=== PATIENT | male | born 1970 | race Caucasian/White ===

== ENCOUNTER 2017-05-09 12:35 | Emergency (ER) | payer MEDICAID ==
[~2017-05-09] VITALS: Ht 175.3 cm; Wt 92.0 kg
[2017-05-09 12:47] VITALS: Ht 175.3 cm; Wt 92.0 kg
[2017-05-09 14:13] VITALS: BP 167/103; PULSE 71; RESP 18
[2017-05-09] MEDS ORDERED: IBUP-1542 PO (14:13)
--- NOTE | 2017-05-09 17:32 | ERD ---
ER Documentation Chief Complaint Date/Time DATE: 05/09/17 TIME: 17:31 Chief Complaint BULGE IN LEFT GROIN AREA X 1 WEEK HPI Patient is a 46-year-old male with no medical problems who presents with a bulge in his left groin. This started 1 week ago. 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 He has been having normal bowel movements. He denies vomiting. He has had no treatment as of yet. He does not currently have a primary doctor. Upon review of old medical records this is the patient' s second visit to the emergency department for an unrelated reason. ROS All systems reviewed and are negative except as per history of present illness. Medications Home Meds Active Scripts Ibuprofen* (Motrin*) 600 Mg Tab, 600 MG PO Q8, #30 TAB Prov:MARLENE TALBERT MD 05/09/17 Allergies Allergies: Coded Allergies: No Known Allergy (Unverified , 05/04/14) PMhx/Soc Medical and Surgical Hx: pt denies Medical Hx, pt denies Surgical Hx Hx Alcohol Use: No Hx Substance Use: No Hx Tobacco Use: No Smoking Status: Never smoker FmHx Family History: No diabetes Physical Exam Vitals Vital Signs Date Time Temp Pulse Resp B/P Pulse Ox O2 Delivery O2 Flow Rate FiO2 05/09/17 14:13 71 18 167/103 98 05/09/17 12:47 98.1 116 18 213/107 98 Physical Exam Const: No acute distress Head: Atraumatic Eyes: Normal Conjunctiva ENT: Normal External Ears, Nose and Mouth. Neck: Full range of motion..~ No meningismus. Resp: Clear to auscultation bilaterally Cardio: Regular rate and rhythm, no murmurs Abd: Soft, non tender, non distended. Normal bowel sounds Skin: No petechiae or rashes Back: No midline or flank tenderness Ext: No cyanosis, or edema Neur: Awake and alert : No testicular pain or swelling, left-sided inguinal hernia without signs of obstruction or incarceration, easily reducible Procedures/MDM Patient is a 46-year-old male presents with acute left-sided inguinal hernia. There is no sign of obstruction or incarceration. The patient is well- appearing. The patient will be given a prescription for ibuprofen and will need to follow-up with a general surgeon for elective hernia repair. I will give him information for Dr. Sharp as well as information for the local clinics as he does not currently have a primary doctor. The patient can return for any worsening symptoms. I do not believe he requires further workup or imaging tests at this time. Departure Diagnosis: Primary Impression: Inguinal hernia Obstruction and gangrene presence: without obstruction or gangrene Laterality : unilateral Recurrence: non-recurrent Qualified Code: K40.90 - Non- recurrent unilateral inguinal hernia without obstruction or gangrene Condition: Fair Patient Instructions: Hernia (Inguinal, Ventral, Umbilical) Referrals: [facility] () Usted se cantu hecho un examen mdico de control que le indica que no est en victoriano condicin que requiera tratamiento urgente en el Departamento de Emergencia. Un estudio ms profundo y el tratamiento de christy condicin pueden esperar sin ningn riesgo hasta que usted sea atendida/o en el consultorio de christy mdico o victoriano cl jorge. Es responsabilidad suya arreglar victoriano linda para el seguimiento del alejandra. MANEJO DE CONDICIONES NO URGENTES EN EL FUTURO 1) Si usted tiene un mdico de atencin primaria: Usted debera llamar a christy mdico de atencin primaria antes de venir al departamento de emergencia. Despus de las horas de consultorio, christy doctor o christy asociado/a est disponible por telfono. El mdico o enfermero de nusrat en el servicio telefnico puede asesorarle por acacia medio para atender el problema, o alejandra contrario se puede programar victoriano linda. 2) Si usted no tiene un mdico de atencin primaria: Llame al mdico o clnica de referencia que aparece abajo trung las horas de consultorio para hacer victoriano linda para que le vean. CLINICAS: [facility] [phone] [id number] [facility] [phone] [address] [facility] [phone] [facility] [phone] [address] [place] [phone] [facility]. [phone] [address] Additional Instructions: Specialist:Usted tiene victoriano condicin mdica que requiere que garry a un especialista dentro de los prximos 1-2 jackson.POR FAVOR,CON CHRISTY SEGUIMIENTO DE PRIMARIA PHSICIAN refferal. SI USTED NO TIENE UN MDICO GENERAL Y / O USTED NO PUEDE PAGAR laurel a un mdico,los siguientes fonseca RECURSOS sido suministrado a usted. ES CHRISTY RESPONSABILIDAD PARA SER VISTOS POR EL ESPECIALISTA: MARLENE TALBERT MD May 09, 2017 17:32
== END 2017-05-09 14:12 | disposition home or self-care (01) ==
LOC: E/R 12:35
DX: K40.90 Unilateral inguinal hernia, without obstruction or gangrene, not specified as recurrent (principal)
CPT/HCPCS: 99283